=== PATIENT | male | born 1970 | race Caucasian/White ===

== ENCOUNTER 2020-07-21 11:25 | Outpatient (REF) | payer OTHER, SELFPAY | END 2020-07-21 11:26 | disposition home or self-care (01) | LOC: HO.LAB 11:25 | PROVIDERS: PCP Family Medicine; Visit Provider Internal Medicine | DX: Z20.822 Contact with and (suspected) exposure to COVID-19 (principal) | CPT/HCPCS: 36415; C9803; U0003; U0005 ==

== ENCOUNTER 2025-01-13 16:09 | Emergency (ER) | payer BC, SELFPAY ==
[2025-01-13 16:27] VITALS: BP 167/93; PULSE 85; RESP 16; TEMP 36.9; O2SAT 96; BMI 27.8
[2025-01-13 16:30] VITALS: RESP 16
--- NOTE | 2025-01-13 16:32 | PC.NURSE ---
Craig comes to the ED today seeking help with recent suicidal ideations, plan to overdose on Benadryl in his bathroom. Pt denies actually acting on his plan at this time. he reports his suicidal thoughts were preceded by personal legal issues . Pt denies previous SI thoughts/attempts and is actively denying homicidal thoughts or hallucinations of any form. Pt is calm and cooperative with changeover, tearful throughout while speaking to staff. Pt endorses being on Wellbutrin 300mg daily and is compliant with the medication. Pt is now resting on bed in [facility] pending medical clearance and CARE team eval
[2025-01-13 16:51] LABS: Appearance Urine Clear; Glucose Urine UA Negative (Negative); PH 6.0 (5.0-9.0); Specific Gravity - Urine >= 1.030 (1.005-1.025); UMIC TRIGGER UACC YES
[2025-01-13 16:56] LABS: UACC Culture Trigger YES
[2025-01-13 17:00] LABS: Cannabinoid Screen Urine POSITIVE (Not Detect)
[2025-01-13 17:03] LABS: MANUAL DIFF FLAG NO
--- NOTE | 2025-01-13 17:05 | ED_ITS ---
HPI - Psych General Chief Complaint: Psychiatric Symptoms Stated Complaint: suicidal thoughts/ Crisis Time Seen by Provider: 01/13/25 16:20 Source: patient Mode of arrival: ambulatory Limitations: no limitations History of Present Illness ED Provider: ISAAC Arechiga HPI Narrative: This is a 54-year-old male past medical history significant for depression presenting to the emergency department with complaints of suicidal ideation with plan to overdose particularly on Benadryl. He denies taking any Benadryl however. He reports this is being triggered by increasing life stressors reports he is having legal issues that he is involved with and this is making him anxious, depressed and making him feel suicidal. Denies drugs, alcohol, tobacco. Denies auditory, visual and tactile hallucinations. Denies medical complaints. Related Data Home Medications ?Medication ?Instructions ?Recorded ?Confirmed bupropion HCl 300 mg 24 hr tablet, 300 mg PO DAILY 03/3001/13/25 extended release Previous Rx's ?Medication ?Instructions ?Recorded lorazepam 0.5 mg tablet (Ativan) 0.5 mg PO TID PRN anx iety #10 tabs 01/13/25 Allergies Allergy/AdvReac Type Severity Reaction Status Date / Time No Known Allergies Allergy Verified 01/13/25 16:28 Review of Systems 2 Review of Systems: Yes all other systems are reviewed and are negative PMFSH Past Medical History Attestation statement: The following information was validated with the patient. Source: old records reviewed and nursing notes reviewed Social History Social History Alcohol intake: current Alcohol intake frequency: holidays/special occasions only Smoked in Last 30 Days: Yes Use of substances other than those prescribed or required for medical reasons: Yes Substance Use Type: Marijuana Substance Use Frequency: Occasionally Last Used Substance: Days (ago) Advance Directives: No Advance Directives Information Provided: No Physical Exam 2 Exam: Exam: Appearance: Alert.? Oriented X3.? No acute distress.? Head: Normocephalic, atraumatic, no step-offs or deformities Eyes: Pupils equal, round and reactive to light.? ENT: Pharynx normal.? Neck: Normal inspection.? Neck supple.? CVS: Normal heart rate and rhythm.? Pulses normal.? Respiratory: No respiratory distress.? Breath sounds normal.? Abdomen: Soft and nontender.? Skin: Skin warm and dry.? Normal skin color.? Normal skin turgor.? Extremities: No lower extremity edema.? No calf ttp. 5/5 strength to bilateral upper and lower extremities Back: No midline tenderness, no C-spine tenderness, full range of motion, no CVA tenderness bilaterally Neuro: Oriented X 3.? No motor deficit.? No sensory deficit. CN 2-12 intact Vital Signs: Vital Signs: Last Vital Signs Temp 97.9 F 01/13/25 19:23 Pulse 68 01/13/25 19:23 Resp 16 01/13/25 19:23 BP 129/70 01/13/25 19:23 Pulse Ox 99 01/13/25 19:23 O2 Del Method Room Air 01/13/25 19:23 BMI result Body Mass Index 27.8 Vital signs stable Course Reevaluation(s) Reevaluation #1: UA without infection. Urine toxicology positive for marijuana. Time: 17:09 Reevaluation #2: CBC no acute findings needing intervention. Chemistry unremarkable. Mild elevation in T bili however no abdominal pain or tenderness to palpation. Salicylates, acetaminophen ethanol negative. At this time patient will be placed into observation to allow more time to be evaluated by care team. At time observation started patient common cooperative no acute distress will continue to monitor Reevaluation #3: Time: 19:02 Date: 01/13/25 Provider: Des Kwok MD Physician observation ended at 19:02 hours. The patient was seen by our CARE team clinician. I obtained the following information from the clinician. The patient is in legal trouble in his home was rated by the [employer] and they took his phone. The patient was upset and was talking to the crisis hotline/988. After this conversation he presented to the emergency department with suicidal ideation with plan to overdose on Benadryl. At this time, the patient is no longer feeling suicidal and he states that he is going to flush all his Benadryl down the toilet. The patient does have a history of depression but has no history of delusions. Patient will be discharged with plan from the care team. Medications Administered Discontinued Medications Generic Name Dose Route Start Last Admin Trade Name Freq PRN Reason Stop Dose Admin Lorazepam 0.5 mg 01/13/25 19:12 01/13/25 19:21 Lorazepam 0.5 Mg Tablet PO 01/13/25 19:13 0.5 mg ONCE ONE Administration Medical Decision Making Medical Decision Making [facility] Narrative: 1700 54-year-old male presents with suicidal ideation with plan to overdose. Physical exam benign History and physical exam concerning for anxiety and depression likely secondary to life stressors. Unlikely electrolyte derangements, intracranial hemorrhage, stroke, encephalopathy. Plan medical clearance evaluation by care team Differential Diagnosis Differential Diagnoses: The differential diagnosis associated with the presentation includes (History and physical exam concerning for anxiety and depression likely secondary to life stressors. Unlikely electrolyte derangements, intracranial hemorrhage, stroke, encephalopathy.) Admission/Observation Consideration of admission/observation: Escalation of care including admission/observation considered (possible ) Consult Healthcare Provider Management of the patient was discussed with: Business Architect (CARE) Lab Data [facility] Lab Attestation statement: I reviewed the patient's lab results. 01/13/25 16:58 01/13/25 16:58 Labs: Lab Results 01/13/25 01/13/25 Range/Units 16:42 16:58 WBC 4.8 (4.8-10.8) X10*3/uL RBC 4.54 L (4.60-5.80) X10*6/uL Hgb 15.6 (14.0-18.0) g/dl Hct 44.7 (42.0-52.0) % MCV 98.5 H (80.0-98.0) fL MCH 34.4 H (27.0-33.0) pg MCHC 34.9 (31.0-36.0) g/dl RDW 12.4 (11.0-16.0) % Plt Count 223 (160-400) X10*3/uL MPV 10.0 (9.4-12.4) fL Immature Gran % (Auto) 1.0 H (0.0-0.4) % Neut % (Auto) 65.6 (45-73) % Lymph % (Auto) 19.0 L (20-40) % [place] % (Auto) 10.1 (2-11) % Eos % (Auto) 3.7 (0-4) % Baso % (Auto) 0.6 (0-2) % Lymph # (Auto) 0.9 L (1.2-4.9) X10*3/uL [place] # (Auto) 0.5 (0.1-1.2) X10*3/uL Eos # (Auto) 0.2 (0.0-0.4) X10*3/uL Baso # (Auto) 0.0 (0.0-0.2) X10*3/uL Abs Immat Gran (auto) 0.05 H (0.00-0.03) X10*3/uL Absolute Neuts (auto) 3.2 (2.0-8.3) x10*3/uL Absolute Nucleated RBC 0.000 (0.0-0.012) X10*3/uL Nucleated RBC % (auto) 0.0 (0.0-0.2) /100WBC Sodium 139 (135-145) mmol/L Potassium 4.0 (3.3-5.1) mmol/L Chloride 104 (96-108) mmol/L Carbon Dioxide 25 (22-29) mmol/L Anion Gap 14 (12-20) BUN 15 (9-16) mg/dL Creatinine 0.86 (0.5-1.4) mg/dL Estim Creat Clear Calc 106.5 Estimated GFR > 60 Random Glucose 102 (60-115) mg/dL Calcium 9.5 (8.4-10.2) mg/dL Total Bilirubin 1.1 H (0.0-1.0) mg/dL AST 25 (5-37) U/L ALT 29 (0-40) U/L Alkaline Phosphatase 71 (39-117) U/L Total Protein 7.6 (6.5-8.0) g/dL Albumin 4.7 (3.5-5.0) g/dL Urine Color Yellow Urine Appearance Clear Urine pH 6.0 (5.0-9.0) Ur Specific [place] >= 1.030 H (1.005-1.025) Urine Protein Negative (Neg-Trace) mg/dL Urine Glucose (UA) Negative (Negative) mg/dL Urine Ketones Negative (Negative) mg/dL Urine Blood Negative (Negative) Urine Nitrite Negative (Negative) Ur Leukocyte Esterase Small (1+) H (Negative) Urine RBC 0-2 (0-2) /HPF Urine WBC 21-50 H (0-5) /HPF Ur Squamous Epith Cells 0-2 (0-2) /HPF Urine Bacteria None Seen (None Seen) Hyaline Casts 0-2 (0-2) /LPF Salicylates < 5.0 L (15-30) mg/dL Urine Opiates Screen Not Detected (Not Detect) Ur Buprenorphine Scrn Not Detected (Not Detect) ng/mL Ur Oxycodone Screen Not Detected (Not Detect) ng/mL Urine Methadone Screen Not Detected (Not Detect) ng/mL Urine Fentanyl Screen Not Detected (Not Detect) Acetaminophen < 3 (<30) mcg/mL Ur Barbiturates Screen Not Detected (Not Detect) Ur Phencyclidine Scrn Not Detected (Not Detect) Ur Amphetamines Screen Not Detected (Not Detect) U Benzodiazepines Scrn Not Detected (Not Detect) Urine Cocaine Screen Not Detected (Not Detect) U Marijuana (THC) Screen POSITIVE H (Not Detect) Ethyl Alcohol 10 mg/dL Chronic Conditions Patient?s care impacted by: Other (depression) Discharge Plan Discharge Clinical Impression: Suicidal ideation, Depression Patient Disposition: Home, Self-Care Additional Instructions: Your blood work was unremarkable. You were evaluated by our care team. Please follow their discharge instructions. If you feel like you are going to hurt yourself or hurt anyone else, please return to the emergency department and we can get you help. I am prescribing Ativan 0.5 mg pills, 1 pill 3 times a day as needed. Continue taking medications as prescribed by your providers. Please see the information below: You were seen in our Emergency Department today for treatment of a behavioral health issue. It is important after your visit that you follow up with either your behavioral health provider or a primary care doctor within 7 days.? If you have trouble finding a therapist you can reach out to [address] [phone] The National Suicide and Crisis Lifeline can be reached 7 days a week 24 hours a day.? Call 988 to speak with someone.? Return for any worsening symptoms or concerns such as thoughts of self harm or harm to others. Please call 911 if you feel your mental health is worsening.? Prescriptions: New lorazepam [Ativan] 0.5 mg tablet 0.5 mg PO TID PRN (Reason: anxiety) Qty: 10 0RF Rx Instructions: Partial fill upon patient request No Action bupropion HCl 300 mg tablet extended release 24 hr 300 mg PO DAILY Interventions: [place]-Suicide Risk Severity Scale Last Done: 01/13/25 16:29 ED Discharge Assessment Last Done: 01/13/25 19:23 Discharge Date/Time: 01/13/25 19:50 Print Language: Samoan
[2025-01-13 17:19] LABS: Acetaminophen LAB < 3 mcg/mL (<30); Alanine Aminotransferase 29 U/L (0-40); Albumin Level 4.7 g/dL (3.5-5.0); Alkaline Phosphatase 71 U/L (39-117); Anion Gap 14 (12-20); Aspartate Amino Transferase 25 U/L (5-37); Blood Urea Nitrogen 15 mg/dL (9-16); Calcium 9.5 mg/dL (8.4-10.2); Carbon Dioxide 25 mmol/L (22-29); Chloride 104 mmol/L (96-108); Creatinine Clr Calc Pharmacy 106.5; Estimated Glomerular Filt Rate > 60; Potassium 4.0 mmol/L (3.3-5.1); Salicylate < 5.0 mg/dL (15-30); Sodium 139 mmol/L (135-145); Total Protein 7.6 g/dL (6.5-8.0)
[2025-01-13 17:28] LABS: Hematocrit 44.7 % (42.0-52.0); Hemoglobin 15.6 g/dl (14.0-18.0); Imm Gran Abs Auto 0.05 X10*3/uL (0.00-0.03); Imm Gran Pct Auto 1.0 % (0.0-0.4); Lymphocytes Absolute Auto 0.9 X10*3/uL (1.2-4.9); Mean Corpuscular HGB Conc 34.9 g/dl (31.0-36.0); Mean Corpuscular Hemoglobin 34.4 pg (27.0-33.0); Mean Corpuscular Volume 98.5 fL (80.0-98.0); NRBC Abs Auto 0.000 X10*3/uL (0.0-0.012); NRBC Pct Auto 0.0 /100WBC (0.0-0.2); Platelet Count 223 X10*3/uL (160-400); Red Blood Count 4.54 X10*6/uL (4.60-5.80); White Blood Count 4.8 X10*3/uL (4.8-10.8)
[2025-01-13 19:23] VITALS: BP 129/70; PULSE 68; RESP 16; TEMP 36.6; O2SAT 99
== END 2025-01-13 19:50 | disposition home or self-care (01) ==
PROVIDERS: Emergency Provider Emergency Medicine Emergency Medical Services; PCP Family Medicine
DX: F33.1 Major depressive disorder, recurrent, moderate (principal); F43.9 Reaction to severe stress, unspecified; R45.851 Suicidal ideations; Z79.899 Other long term (current) drug therapy; Z51.81 Encounter for therapeutic drug level monitoring
CPT/HCPCS: 36415; 80053; 80143; 80179; 80307; 81001; 85025; 87086; 99285; S9485